=== PATIENT | female | born 1935 | race Caucasian/White ===

== ENCOUNTER → 2016-10-05 | Outpatient (CLI) | payer MEDICARE ==
[2014-12-08 12:27] VITALS: BP 127/61
[~2016-10-05] MED LIST: AMLO5TAB2 PO; ASPI-630 PO; BENA40TA2 PO; CALC-507 PO; CYAN10005 PO; GLIP5TAB10 PO; LOVA20TA2 PO; TRIA1CAP3 PO
--- NOTE | 2016-10-05 14:01 | RAD ---
Indication follow-up. Grayscale color Doppler and spectral analysis was performed. Note is made of a previous examination one year ago. On the right there is some minimal plaquing at the bifurcation. The color Doppler images do not suggest significant turbulence. The common carotid waveform and velocities are normal. The internal carotid waveform and velocities are also normal. The external carotid has an unremarkable appearance. The vertebral is patent and demonstrates normal directional flow. On the left there is also some plaquing at the bifurcation similar to the contralateral side. The color Doppler images do not suggest significant turbulence. Common carotid waveform and velocities are normal. The internal carotid waveform and velocities are also normal. The external carotid has an unremarkable appearance. The vertebral is patent and demonstrates normal directional flow. IMPRESSION: No evidence of hemodynamically significant stenosis at either carotid bifurcation. Stenosis 0-50%. Note: Stenosis calculations for CT, MR and conventional angiography are based upon determination of the distal ICA diameter in accordance with the NASCET methodology. Stenosis calculations for doppler studies are derived from validated velocity criteria which are known to correlate with NASCET methodology of determining stenosis.
== END ==
LOC: US 11:57
PROVIDERS: ATTEND Internal Medicine Cardiovascular Disease
DX: R09.89 Other specified symptoms and signs involving the circulatory and respiratory systems (principal); I10 Essential (primary) hypertension
CPT/HCPCS: 93880

== ENCOUNTER → 2016-10-08 | Outpatient (CLI) | payer MEDICARE ==
[2014-12-08 12:27] VITALS: BP 127/61
--- NOTE | 2016-10-09 09:46 | RAD ---
DATE: 10/08/2016 EXAM: DIGITAL SCREEN BILAT W/CAD HISTORY: Previous breast cancer COMPARISON: 09/23/2015, 10/05/2015 This study was interpreted with the benefit of Computerized Aided Detection (CAD). The breast parenchyma shows scattered fibroglandular densities. Breast parenchyma level B. FINDINGS: No new or enlarging breast densities are seen. A stable area of mild architectural distortion in the superior aspect of the left breast is presumably postsurgical. Benign type calcifications are present. No suspicious microcalcifications have developed. IMPRESSION: Stable mammograms without evidence of malignancy. BI-RADS CATEGORY: 2 BENIGN FINDING(S) RECOMMENDED FOLLOW-UP: 12M 12 MONTH FOLLOW-UP PQRS compliance statement: Patient information was entered into a reminder system with a target due date for the next mammogram. Mammography is a sensitive method for finding small breast cancers, but it does not detect them all and is not a substitute for careful clinical examination. A negative mammogram does not negate a clinically suspicious finding and should not result in delay in biopsying a clinically suspicious abnormality. "Our facility is accredited by the [employer] Mammography [employer]."
== END | disposition home or self-care (01) ==
LOC: MAMMO 13:37
PROVIDERS: ATTEND Family Medicine
DX: Z12.31 Encounter for screening mammogram for malignant neoplasm of breast (principal)
CPT/HCPCS: G0202; 77067

== ENCOUNTER → 2017-11-06 | Outpatient (CLI) | payer MEDICARE ==
[2014-12-08 12:27] VITALS: BP 127/61
[~2017-11-06] MED LIST changes: -BENA40TA2 PO; +BENA40TA3 PO
--- NOTE | 2017-11-06 14:28 | RAD ---
DATE: 11/06/2017 EXAM: MAMMO DEX SCREENING BILATERAL HISTORY: Previous breast cancer COMPARISON: 10/08/2016 This study was interpreted with the benefit of Computerized Aided Detection (CAD). The breast parenchyma shows scattered fibroglandular densities. Breast parenchyma level B. FINDINGS: 2-D and 3-D tomosynthesis imaging was performed in CC and MLO projections. No new or enlarging breast densities are seen. There is mild unchanged architectural distortion in the superior aspect of the left breast which is presumably postsurgical. Benign type calcifications are present. No suspicious microcalcifications have developed. IMPRESSION: Stable mammograms without evidence of malignancy. BI-RADS CATEGORY: 2 BENIGN FINDING(S) RECOMMENDED FOLLOW-UP: 12M 12 MONTH FOLLOW-UP PQRS compliance statement: Patient information was entered into a reminder system with a target due date for the next mammogram. Mammography is a sensitive method for finding small breast cancers, but it does not detect them all and is not a substitute for careful clinical examination. A negative mammogram does not negate a clinically suspicious finding and should not result in delay in biopsying a clinically suspicious abnormality. "Our facility is accredited by the [employer] Mammography [employer]."
== END | disposition home or self-care (01) ==
LOC: MAMMO 12:54
PROVIDERS: ATTEND Family Medicine
DX: Z12.31 Encounter for screening mammogram for malignant neoplasm of breast (principal); I10 Essential (primary) hypertension; E11.9 Type 2 diabetes mellitus without complications
CPT/HCPCS: 77063; 77067

== ENCOUNTER → 2018-12-02 | Outpatient (CLI) | payer MEDICARE ==
[2014-12-08 12:27] VITALS: BP 127/61
[~2018-12-02] MED LIST changes: +AMLO5TAB10 PO; -AMLO5TAB2 PO; +CYAN-25 PO; -CYAN10005 PO
--- NOTE | 2018-12-02 16:29 | RAD ---
DATE: 12/02/2018 1:02 PM EXAM: MAMMO DEX SCREENING BILATERAL HISTORY: routine screening evaluation. COMPARISON: 11/06/2017, 10/08/2016, 10/05/2015 09/23/2015 Bilateral CC and MLO views of the breasts were performed. Bilateral breast tomosynthesis was performed in CC and MLO projections. This study was interpreted with the benefit of Computerized Aided Detection (CAD). FINDINGS: Breast Density: SCATTERED The breast parenchyma shows scattered fibroglandular densities. Breast parenchyma level B Benign calcifications are present. The parenchymal pattern appears stable. No suspicious masses, microcalcifications or architectural distortion is present to suggest malignancy in either breast. The visualized axillae are unremarkable. IMPRESSION: No mammographic evidence of malignancy. BI-RADS CATEGORY: 2 BENIGN FINDING(S) RECOMMENDED FOLLOW-UP: 12M 12 MONTH FOLLOW-UP Annual screening mammography is recommended, unless clinically indicated sooner based on symptoms or change in physical exam. PQRS compliance statement: Patient information was entered into a reminder system with a target due date for the next mammogram. Mammography is a sensitive method for finding small breast cancers, but it does not detect them all and is not a substitute for careful clinical examination. A negative mammogram does not negate a clinically suspicious finding and should not result in delay in biopsying a clinically suspicious abnormality. "Our facility is accredited by the [employer] Mammography [employer]."
== END | disposition home or self-care (01) ==
LOC: MAMMO 12:48
PROVIDERS: ATTEND Family Medicine
DX: Z12.31 Encounter for screening mammogram for malignant neoplasm of breast (principal); N64.89 Other specified disorders of breast
CPT/HCPCS: 77063; 77067

== ENCOUNTER → 2019-12-07 | Outpatient (CLI) | payer MEDICARE ==
[2014-12-08 12:27] VITALS: BP 127/61
--- NOTE | 2019-12-07 16:03 | RAD ---
INDICATION: 83 years of age asymptomatic female patient presents for screening mammography. TECHNIQUE: Bilateral full field craniocaudal and mediolateral oblique images were obtained using digital technique and also analyzed with computer-aided detection software. COMPARISON: 12/02/2018, 11/06/2017, 10/08/2016. BREAST COMPOSITION: Category B: There are scattered fibroglandular densities. FINDINGS: Benign calcifications are present. The parenchymal pattern appears stable. No suspicious masses, microcalcifications or architectural distortion is present to suggest malignancy in either breast. The visualized axillae are unremarkable. IMPRESSION: No mammographic evidence of malignancy. RECOMMENDATION: Annual screening mammography is recommended, unless clinically indicated sooner based on symptoms or change in physical exam. BIRADS 2: BENIGN This study was interpreted with the benefit of Computerized Aided Detection (CAD). Patient information is entered into the reminder system with a target due date for the next screening mammogram. Mammography is the most sensitive method for finding small breast cancers, but it does not detect them all and is not a substitute for careful clinical examination. A negative mammogram does not negate a clinically suspicious finding and should not result in delay in biopsying a clinically suspicious abnormality. "Our facility is accredited by the [employer] Mammography [employer]." Electronically signed by: Jerry Zepeda MD (12/07/2019 3:59 PM) [id number]
== END | disposition home or self-care (01) ==
LOC: MAMMO 08:34
PROVIDERS: ATTEND Family Medicine
DX: Z12.31 Encounter for screening mammogram for malignant neoplasm of breast (principal); N64.89 Other specified disorders of breast
CPT/HCPCS: 77067

== ENCOUNTER → 2020-12-08 | Outpatient (CLI) | payer MEDICARE ==
[2014-12-08 12:27] VITALS: BP 127/61
[~2020-12-08] MED LIST changes: +AMLO-186 PO; -AMLO5TAB10 PO
--- NOTE | 2020-12-08 15:21 | RAD ---
MG BILAT SCREEN+DEX 12/08/2020 10:25 AM INDICATION: Asymptomatic screening mammogram. COMPARISON: 12/07/2019, 12/02/2018, 11/06/2017 TECHNIQUE: 3D tomosynthesis was performed in CC and MLO projections. 2D views were obtained from the 3D data. CAD was utilized as needed. FINDINGS: Breast density: Category B: There are scattered areas of fibroglandular density. Right breast: There are no suspicious microcalcifications, masses or areas of architectural distortio n. Left breast: There are no suspicious microcalcifications, masses or areas of architectural distortion . Bilateral mammogram is compared to prior examinations appears unchanged. IMPRESSION: Negative bilateral mammogram. BI-RADS category: 1; Negative Recommendations: Recommend annual screening mammography in one year. Electronically signed by: Doris Leavitt MD (12/08/2020 3:18 PM) [id number]
== END ==
LOC: MAMMO 10:04
PROVIDERS: ATTEND Family Medicine
DX: Z12.31 Encounter for screening mammogram for malignant neoplasm of breast (principal)
CPT/HCPCS: 77063; 77067

== ENCOUNTER → 2021-07-20 | Outpatient (CLI) | payer MEDICARE ==
[2014-12-08 12:27] VITALS: BP 127/61
[~2021-07-20] MED LIST changes: -BENA40TA3 PO; +BENA40TA74 PO
--- NOTE | 2021-07-20 13:56 | KCIC ---
Examination: Bilateral venous Doppler Indication: Leg swelling Technique: Ultrasound evaluation of the bilateral lower extremities was performed from the groin to t he upper calf with ching scale, spectral and color doppler evaluation. Comparison: None Findings: There is normal venous flow and compressibility of bilateral common femoral veins, femoral veins, popliteal veins, and visualized proximal calf veins. Impression: No evidence for deep vein thrombosis of bilateral lower extremities from the level of the calf veins to the groins. Electronically signed by: Jerry Zepeda MD (07/20/2021 1:53 PM) [id number]
== END ==
LOC: KCIC US 12:42
PROVIDERS: ATTEND Family Medicine
DX: R60.0 Localized edema (principal)
CPT/HCPCS: 93970